=== PATIENT | female | born 1940 | race Asian ===

== ENCOUNTER → 2018-02-17 | Outpatient (CLI) | payer OTHER | LOC: FIMAGING 09:09 | PROVIDERS: ATTEND Family Medicine | DX: Z13.820 Encounter for screening for osteoporosis (principal); M81.0 Age-related osteoporosis without current pathological fracture; R73.01 Impaired fasting glucose ==

== ENCOUNTER → 2019-02-18 | Outpatient (CLI) | payer OTHER | LOC: CIMAGING 07:51 ==